=== PATIENT | female | born 1940 | race Two or more races ===

== ENCOUNTER 2017-09-30 19:31 | Emergency (ER) | payer MEDICARE, OTHER ==
[~2017-09-30] VITALS: Ht 170.2 cm; Wt 110.2 kg
[~2017-09-30 19:31] MED LIST: ACYC5CRE2 TP; AMYL1CAP56 PO; BUME1TAB4 PO; CALC667C6 PO; CLOT15CR63 TP; CYCL30DR EACHEYE; DESO15OI TP; FLUT1DIS3 IH; MECL-102 PO; METO-356 PO; MOME15OI2 TP; NEPA1.7D EACHEYE; NIFE60TA2 PO; NYST15OI TP; OMEP40CA37 PO; PARO30TA74 PO; POTA8TAB8 PO; QUET25TA PO; VALS80TA2 PO; [UNRECOGNIZED DRUG - CODE] PO
--- NOTE | 2017-09-30 19:35 | NUR ---
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 PATIENT IS AAOX3, VSS. NAD NOTED. SKIN WARM AND DRY. PLACED ON TELE/VS MONITORING. Addendum: 09/30/17 at 2058 by ITZ BBRA FROM HOME
--- NOTE | 2017-09-30 19:55 | NUR ---
started a saline lock on the rac g18, blood drawn and sent to lab.
[2017-09-30 19:59] LABS: BASOPHILS # (AUTO) 0.1 /CMM (0.0-0.2); BASOPHILS % (AUTO) 1.2 % (0.0-2.0); EOSINOPHILS % (AUTO) 1.7 % (0.0-6.0); HEMATOCRIT 38 % (33-45); HEMOGLOBIN 13.2 g/dL (11.5-14.8); LYMPHOCYTES # (AUTO) 2.3 /CMM (0.8-4.8); LYMPHOCYTES % (AUTO) 38.1 % (20.0-44.0); MEAN CORPUSCULAR HGB CONC 35 g/dl (31.0-36.0); MEAN CORPUSCULAR VOLUME 91 fL (82-100); MONOCYTES # (AUTO) 0.3 /CMM (0.1-1.30); MONOCYTES % (AUTO) 5.3 % (2.0-12.0); NEUTROPHILS # (AUTO) 3.2 /CMM (1.8-8.9); NEUTROPHILS % (AUTO) 53.7 % (43.0-81.0); PLATELET COUNT (AUTO) 219 /CMM (150-450); RDW COEFFICIENT OF VARIATION 14.5 (11.5-15.0)
[2017-09-30 20:14] LABS: CALCIUM, SERUM 8.9 mg/dL (8.5-10.1); CARBON DIOXIDE 26 mmol/L (21-32); CHLORIDE 105 mmol/L (98-107); CREATININE 0.7 mg/dL (0.6-1.3); GLUCOSE 148 mg/dL (74-106); POTASSIUM 3.2 mmol/L (3.5-5.1); SODIUM SERUM 141 mmol/L (136-145); UREA NITROGEN, BLOOD 19 mg/dL (7-18)
[2017-09-30 20:27] LABS: B-TYPE NATRIURETIC PEPTIDE 191 PG/ML (0-125)
[2017-09-30] MEDS ORDERED: POTASSIUM CHLORIDE 20 MEQ TAB.PRT.SR PO ONE ×2 (20:59→21:00)
--- NOTE | 2017-09-30 21:12 | NUR ---
IV removed. Catheter intact and site benign. Pressure and 4x4 applied to site. No bleeding noted. Patient discharged to home in stable condition. Written and verbal after care instructions given. Patient verbalizes understanding of instruction. Patient is ambulatory with steady gait, accompanied by family. vss. nad noted. no further complaints.
[2017-09-30 21:28] VITALS: BP 129/70
== END 2017-09-30 21:28 | disposition home or self-care (01) ==
LOC: ER 19:33
DX: I10 Essential (primary) hypertension (principal); F41.9 Anxiety disorder, unspecified; E87.6 Hypokalemia; K21.9 Gastro-esophageal reflux disease without esophagitis; F17.210 Nicotine dependence, cigarettes, uncomplicated; D64.9 Anemia, unspecified; Z98.890 Other specified postprocedural states
CPT/HCPCS: 36415; 71045-TC; 80048-TC; 83880; 85025-TC; A4606; Z7610